=== PATIENT | male | born 1930 | race Caucasian/White ===

== ENCOUNTER → 2017-01-31 | Outpatient (CLI) | payer MEDICARE, BC | LOC: US 15:00 | DX: N18.9 Chronic kidney disease, unspecified (principal); E55.9 Vitamin D deficiency, unspecified; N28.1 Cyst of kidney, acquired ==

== ENCOUNTER → 2017-05-29 | Outpatient (CLI) | payer MEDICARE, BC | LOC: HEART 5 11:23 | DX: I65.29 Occlusion and stenosis of unspecified carotid artery (principal); I10 Essential (primary) hypertension; I65.23 Occlusion and stenosis of bilateral carotid arteries ==